=== PATIENT | male | born 1990 | race African-American/Black ===

== ENCOUNTER 2019-05-15 16:18 | Emergency (ER) | payer OTHER ==
[~2019-05-15] VITALS: Ht 185.4 cm; Wt 72.2 kg
[2019-05-15 16:50] VITALS: BP 120/79
--- NOTE | 2019-05-15 16:54 | NUR ---
PT AMBULATED BACK TO LOBBY WITH STEADY GAIT.
--- NOTE | 2019-05-15 20:09 | NUR ---
PT AMBULATED TO BED 7
--- NOTE | 2019-05-15 20:18 | NUR ---
28/M PRESENTED TO ED BIB SELF. A/O X4 TO PERSON PLACE TIME AND EVENT. C/O RIGHT EYE DISCOMFORT, REDNESS, RIGHT EYE BLURRINESS X 2 DAYS. PT ADMINISTERED UNKNOWN EYE DROPS 2 DAYS AGO BUT NO RELIEF. PT DENIES EYE DISCHARGE. NO FEVER. NO N/V/D. NO MED HX. NO RX. DENIES ALLERGIES. WILL CONTINUE TO MONITOR.
[2019-05-15 20:35] VITALS: BP 120/79
--- NOTE | 2019-05-15 20:35 | NUR ---
Patient discharged with v/s stable. Written and verbal after care instructions given and explained. Patient alert, oriented and verbalized understanding of instructions. Ambulatory with steady gait. All questions addressed prior to discharge. ID band removed. Patient advised to follow up with PMD. Rx of MOTRIN, NAPHAZOLINE HYDROCHLORIDE given. Patient educated on indication of medication including possible reaction and side effects. Opportunity to ask questions provided and answered.
== END 2019-05-15 20:35 | disposition home or self-care (01) ==
LOC: MED 16:18
DX: B30.9 Viral conjunctivitis, unspecified (principal)
CPT/HCPCS: 99282

== ENCOUNTER 2019-10-20 17:15 | Emergency (ER) | payer OTHER ==
--- NOTE | 2019-10-20 17:27 | NUR ---
CALLED FOR TRIAGE. NO RESPONSE.
--- NOTE | 2019-10-20 17:37 | NUR ---
CALLED FOR WILFREDO NO RESPONSE.
--- NOTE | 2019-10-20 17:47 | NUR ---
CALLED FOR TRIAGE; NO RESPONSE. PT LEFT BEFORE TRAIGE.
== END 2019-10-20 17:27 | disposition left against medical advice (07) ==
LOC: MED 17:15
DX: Z53.21 Procedure and treatment not carried out due to patient leaving prior to being seen by health care provider (principal)

== ENCOUNTER 2020-05-12 07:45 | Emergency (ER) | payer OTHER ==
[~2020-05-12] VITALS: Ht 185.4 cm; Wt 79.4 kg
[2020-05-12 07:47] VITALS: BP 146/78
[2020-05-12] MEDS ORDERED: AZITHROMYCIN 250 MG TAB PO ONE (08:10)
[2020-05-12] MEDS ORDERED: cefTRIAXone 250 MG in LIDOCAINE MPF 1% 0.9 ML IM ONE (08:10)
[2020-05-12] MEDS ORDERED: LIDOCAINE MPF 1% 5 ML ONE (08:15)
[2020-05-12] MEDS ORDERED: cefTRIAXone 250 MG VIAL ONE (08:15)
[2020-05-12 08:34] VITALS: BP 146/78
[2020-05-15 09:15] LABS: CHLAMYDIA TRACHOMATIS AMP DNA Negative (Negative)
== END 2020-05-12 08:35 | disposition home or self-care (01) ==
LOC: MED 07:45
DX: R36.9 Urethral discharge, unspecified (principal)
CPT/HCPCS: 36415; 81002; 96372; 99283; J0696; J2001

== ENCOUNTER 2022-09-29 05:04 | Emergency (ER) | payer OTHER ==
[~2022-09-29] VITALS: Ht 172.7 cm; Wt 85.7 kg
[2022-09-29 05:22] VITALS: BP 126/83
--- NOTE | 2022-09-29 05:36 | NUR ---
PT TAKEN TO BED 6
--- NOTE | 2022-09-29 05:40 | NUR ---
pt bibs from home with c/o eye soreness and blurry vision left eye since yesterday. noted with redness. pmhx:denies allergies: PASTOR
--- NOTE | 2022-09-29 06:04 | NUR ---
Dr. Swann examining patient.
[2022-09-29] MEDS ORDERED: POLY10SO OP (06:24)
--- NOTE | 2022-09-29 07:03 | NUR ---
Patient discharged with v/s stable. Written and verbal after care instructions given and explained. Patient alert, oriented and verbalized understanding of instructions. Ambulatory with steady gait. All questions addressed prior to discharge. ID band removed. Patient advised to follow up with PMD. Rx of Polymyxin given. Patient educated on indication of medication including possible reaction and side effects. Opportunity to ask questions provided and answered.
[2022-09-29 07:05] VITALS: BP 126/83
== END 2022-09-29 07:03 | disposition home or self-care (01) ==
LOC: MED 05:04
DX: H10.9 Unspecified conjunctivitis (principal)
CPT/HCPCS: 99283

== ENCOUNTER 2023-01-06 06:03 | Emergency (ER) | payer OTHER ==
[~2023-01-06] VITALS: Ht 185.4 cm; Wt 85.3 kg
[~2023-01-06 06:03] MED LIST: POLY10SO OP
[2023-01-06 06:06] VITALS: BP 145/88
--- NOTE | 2023-01-06 06:13 | NUR ---
Patient taken to bed 9.
--- NOTE | 2023-01-06 06:25 | NUR ---
Patient being evaluated by physician at bedside.
[2023-01-06] MEDS ORDERED: cefTRIAXone 500 MG in LIDOCAINE MPF 1% 1 ML IM ONE (06:35)
[2023-01-06] MEDS ORDERED: DOXYCYCLINE 100 MG CAP PO SCH (06:35)
[2023-01-06] MEDS ORDERED: DOXY-487 PO (06:39)
[2023-01-06] MEDS ORDERED: IBUP-2213 PO (06:39)
[2023-01-06] MEDS ORDERED: cefTRIAXone 500 MG VIAL ONE (07:22)
[2023-01-06] MEDS ORDERED: LIDOCAINE MPF 1% 5 ML ONE (07:23)
--- NOTE | 2023-01-06 07:25 | NUR ---
first encounter with pt. medicated as orderedPatient discharged with v/s stable. Written and verbal after care instructions given and explained. Patient alert, oriented and verbalized understanding of instructions. Ambulatory with steady gait. All questions addressed prior to discharge. ID band removed. Patient advised to follow up with PMD. Rx of ibuprofen, doxycycline given. Patient educated on indication of medication including possible reaction and side effects. Opportunity to ask questions provided and answered.
== END 2023-01-06 07:25 | disposition home or self-care (01) ==
LOC: MED 06:03
DX: Z11.3 Encounter for screening for infections with a predominantly sexual mode of transmission (principal); R30.0 Dysuria; Z79.1 Long term (current) use of non-steroidal anti-inflammatories (NSAID); Z79.2 Long term (current) use of antibiotics
CPT/HCPCS: 96372; 99283; J0696; J2001

== ENCOUNTER 2023-06-20 18:20 | Emergency (ER) | payer OTHER ==
[~2023-06-20] VITALS: Ht 185.4 cm; Wt 85.8 kg
[~2023-06-20 18:20] MED LIST changes: +DOXY-487 PO; +IBUP-2213 PO
[2023-06-20 18:29] VITALS: BP 141/79; PULSE 82; RESP 18; TEMP 97.7; O2SAT 97
[2023-06-20] MEDS ORDERED: IBUPROFEN 400 MG TAB PO ONE (22:30)
[2023-06-20] MEDS ORDERED: ACETAMINOPHEN EXTRA STRENGTH 500 MG TAB PO ONE (22:30)
[2023-06-20 22:40] VITALS: BP 122/85; PULSE 76; RESP 18; TEMP 97.7; O2SAT 97
== END 2023-06-20 22:40 | disposition home or self-care (01) ==
LOC: MED 18:20
DX: S11.83XA Puncture wound without foreign body of other specified part of neck, initial encounter (principal); R51.9 Headache, unspecified; V49.88XA Car occupant (driver) (passenger) injured in other specified transport accidents, initial encounter; Y93.89 Activity, other specified; Y92.89 Other specified places as the place of occurrence of the external cause; Y99.8 Other external cause status
CPT/HCPCS: 99283